=== PATIENT | female | born 1965 | race African-American/Black ===

== ENCOUNTER 2017-01-18 16:43 | Emergency (ER) | payer OTHER | END 2017-01-18 18:35 | disposition home or self-care (01) | LOC: CED 16:43 → CFTX 16:43 | DX: S61.210A Laceration without foreign body of right index finger without damage to nail, initial encounter (principal); W26.0XXA Contact with knife, initial encounter; Y92.009 Unspecified place in unspecified non-institutional (private) residence as the place of occurrence of the external cause; Z23 Encounter for immunization | CPT/HCPCS: 90471; 90715; 99283 ==